=== PATIENT | male | born 1990 | race Caucasian/White ===

== ENCOUNTER 2016-09-07 00:41 | Emergency (ER) | payer OTHER ==
[~2016-09-07] VITALS: Ht 170.2 cm; Wt 55.5 kg
[~2016-09-07 00:41] MED LIST: DENIES
[2016-09-07 00:45] VITALS: Ht 170.2 cm; Wt 55.5 kg
[2016-09-07] MEDS ORDERED: IBUPROFEN 200 MG TAB PO ONE (01:00)
[2016-09-07] MEDS ORDERED: IBUP400T22 PO (01:04)
[2016-09-07] MEDS ORDERED: GUAI473L22 PO (01:04)
[2016-09-07] MEDS ORDERED: CETI10CA PO (01:04)
[2016-09-07] MEDS ORDERED: ALBU8.5H3 INH (01:04)
--- NOTE | 2016-09-07 01:08 | ERD ---
ER Documentation Chief Complaint Date/Time DATE: 09/07/16 TIME: 01:05 Chief Complaint cough x 3 days, sore throat HPI 26-year-old male presents to emergency department for complaints of cough for 3 days, runny nose nasal congestion sore throat and fever. Patient has an injury cough, does not cough up any phlegm or blood. Patient does not have any sick contacts. Patient took DayQuil home to help with symptoms with mild relief. ROS All systems reviewed and are negative except as per history of present illness. Medications Home Meds Active Scripts Albuterol Sulfate* (Proair HFA*) 8.5 Gm Hfa.aer.ad, 2 PUFF INH Q4H Y for WHEEZING AND SOB, #1 INHALER Prov:MARICRUZ GURROLA NP 09/07/16 Cetirizine Hcl* (Zyrtec*) 10 Mg Capsule, 10 MG PO DAILY, #30 TAB.CHEW Prov:MARICRUZ GURROLA NP 09/07/16 Ibuprofen* (Motrin*) 400 Mg Tab, 400 MG PO Q6H Y for PAIN AND OR ELEVATED TEMP, #30 TAB Prov:MARICRUZ GURROLA NP 09/07/16 Guaifenesin-Codeine Phosphate* (Guaifenesin* AC Cough Syrup) 473 Ml Liquid, 5 ML PO Q4H Y for COUGH, #120 ML Prov:MARICRUZ GURROLA NP 09/07/16 Reported Medications [Denies] No Conflict Check 04/03/11 Allergies Allergies: Coded Allergies: No Known Drug Allergies (Verified Allergy, Unknown, NONE, 10/31/13) PMhx/Soc Medical and Surgical Hx: pt denies Medical Hx History of Surgery: Yes (appendectomy) Anesthesia Reaction: No Hx Neurological Disorder: No Hx Respiratory Disorders: No Hx Cardiac Disorders: No Hx Psychiatric Problems: No Hx Miscellaneous Medical Probl: No Hx Alcohol Use: No Hx Substance Use: No Hx Tobacco Use: No FmHx Family History: No coronary disease, No diabetes, No other Physical Exam Vitals Vital Signs Date Time Temp Pulse Resp B/P Pulse Ox O2 Delivery O2 Flow Rate FiO2 09/07/16 00:45 100.1 87 20 124/69 98 Physical Exam GENERAL: The patient is well developed and appropriate for usual state of health, in no apparent distress. HEENT: Atraumatic. Ears: Normal tympanic membrane, no erythema or bulging. No ear canal swelling. No ear discharge. Nose: Erythematous nasal turbinates with clear nasal discharge. Throat: oropharynx erythematous with postnasal drainage. No tonsillar swelling or tonsillar exudates. No lymphadenopathy. CHEST: Clear to auscultation bilaterally. There are no rales, wheezes or rhonchi. HEART: Regular rate and rhythm. No murmurs, clicks, rubs or gallops. No S3 or S4. ABDOMEN: Soft, nontender and nondistended. Good bowel sounds. No rebound or guarding. No gross peritonitis. No gross organomegaly or masses. No Solorzano sign or McBurney point tenderness. BACK: No midline or flank tenderness. EXTREMITIES: Equal pulses bilaterally. There is no peripheral clubbing, cyanosis or edema. No focal swelling or erythema. Full range of motion. Grossly neurovascularly intact. NEURO: Alert and oriented. Cranial nerves 2-12 intact. Motor strength in all 4 extremities with 5/5 strength. Sensation grossly intact. Normal speech and gait. SKIN: There is no apparent rash or petechia. The skin is warm and dry. HEMATOLOGIC AND LYMPHATIC: There is no evidence of excessive bruising or lymphedema. No gross cervical, axillary, or inguinal lymphadenopathy. Results 24 hrs Current Medications Medications (Trade) Dose Ordered Sig/Lori Route PRN Reason Start Time Stop Time Status Last Admin Dose Admin Ibuprofen (Motrin) 400 mg ONCE ONCE PO 09/07/16 01:00 09/07/16 01:01 DC Patient was given medicines for fever control here in the emergency department. After treatment, patient temperature improved and lower. Patient appears well and is hemodynamically stable. Procedures/MDM Medical Decision Making: Patient symptoms are most likely consistent with upper respiratory tract infection, which viral in origin. There is low suspicion for Pneumonia at this time since patients lungs sounds are clear, patient O2 saturation is normal and patient doesnt show any respiratory distress. Radiology exam is not repeated at this. There is low suspicion for other cardiopulmonary emergencies at this time such as CHF, Pulmonary Embolism, Pneumothorax, or any other cardiopulmonary emergencies at this time. There is low suspicion for sepsis. Patient appears well and is hemodynamically stable. Fever is controlled with medicines. Disposition: Home. Condition: Stable Prescriptions: Guaifenesin with codeine ibuprofen Zyrtec albuterol. Instructions: Patient is advised to take medications as prescribed. Patient is advised to rest. Patient advised to increase fluid intake, do humidifier at home and if possible, do salt water gargles. Patient is advised that if symptoms are worse, shortness of breath, uncontrolled fever, stridor, vomiting, worst signs and symptoms to return to emergency department immediately. Otherwise, patient is advised to follow up with primary doctor in 5-7 days. Disclaimer: Inadvertent spelling and grammatical errors are likely due to EHR/ dictation software use and do not reflect on the overall quality of patient care. Also, please note that the electronic time recorded on this note does not necessarily reflect the actual time of the patient encounter. Departure Diagnosis: Primary Impression: URI (upper respiratory infection) URI type: unspecified viral URI Qualified Code: J06.9 - Viral upper respiratory tract infection Condition: Stable Patient Instructions: Uri, Viral, No Abx (Adult) MARICRUZ GURROLA NP Sep 07, 2016 01:07
== END 2016-09-07 01:26 | disposition home or self-care (01) ==
LOC: FTE 00:41
DX: J06.9 Acute upper respiratory infection, unspecified (principal)
CPT/HCPCS: Z7502; Z7610; 99283

== ENCOUNTER 2016-12-02 06:34 | Emergency (ER) | payer OTHER ==
[~2016-12-02] VITALS: Ht 170.2 cm; Wt 57.0 kg
[~2016-12-02 06:34] MED LIST changes: +ALBU8.5H3 INH; +CETI10CA PO; +GUAI473L22 PO; +IBUP400T22 PO
[2016-12-02 06:36] VITALS: Ht 170.2 cm; Wt 57.0 kg
[2016-12-02] MEDS ORDERED: MECLIZINE 12.5 MG TAB PO STA (06:48)
[2016-12-02] MEDS ORDERED: ONDANSETRON (ODT) 4 MG TAB ODT STA (06:48)
[2016-12-02] MEDS ORDERED: ACETAMINOPHEN 500 MG TAB PO STA (06:48)
[2016-12-02] MEDS ORDERED: MECL12.574 PO (06:50)
[2016-12-02] MEDS ORDERED: ONDA4TAB14 PO (06:50)
--- NOTE | 2016-12-02 07:22 | ERD ---
ER Documentation Chief Complaint Date/Time DATE: 12/02/16 TIME: 07:20 Chief Complaint Patient complains of headache and dizziness since this am HPI This is a 26-year-old male presenting to the emergency department complaining of headache, dizziness as if the room is spinning and nausea since this morning. Patient states that it started when he got up from bed and is exacerbated when he moves his head. Patient denies any vision changes, vomiting , lethargy. Patient states that he has not taken any medications for this. Denies any drug use or alcohol use ROS All systems reviewed and are negative except as per history of present illness. Medications Home Meds Active Scripts Ondansetron (Ondansetron Odt) 4 Mg Tab.rapdis, 4 MG PO Q6H Y for NAUSEA AND/OR VOMITING, #20 TAB Prov:MISSY REYES PA-C 12/02/16 Meclizine Hcl* (Antivert*) 12.5 Mg Tab, 25 MG PO Q6H Y for DIZZINESS, #20 TAB Prov:MISSY REYES PA-C 12/02/16 Albuterol Sulfate* (Proair HFA*) 8.5 Gm Hfa.aer.ad, 2 PUFF INH Q4H Y for WHEEZING AND SOB, #1 INHALER Prov:MARICRUZ GURROLA NP 09/07/16 Cetirizine Hcl* (Zyrtec*) 10 Mg Capsule, 10 MG PO DAILY, #30 TAB.CHEW Prov:MARICRUZ GURROLA NP 09/07/16 Ibuprofen* (Motrin*) 400 Mg Tab, 400 MG PO Q6H Y for PAIN AND OR ELEVATED TEMP, #30 TAB Prov:MARICRUZ GURROLA NP 09/07/16 Guaifenesin-Codeine Phosphate* (Guaifenesin* AC Cough Syrup) 473 Ml Liquid, 5 ML PO Q4H Y for COUGH, #120 ML Prov:MARICRUZ GURROLA NP 09/07/16 Reported Medications [Denies] No Conflict Check 04/03/11 Allergies Allergies: Coded Allergies: No Known Drug Allergies (Verified Allergy, Unknown, NONE, 10/31/13) PMhx/Soc Medical and Surgical Hx: pt denies Medical Hx History of Surgery: Yes (appendix) Anesthesia Reaction: No Hx Neurological Disorder: No Hx Respiratory Disorders: No Hx Cardiac Disorders: No Hx Psychiatric Problems: No Hx Miscellaneous Medical Probl: No Hx Alcohol Use: Yes (social) Hx Substance Use: Yes (marijuana) Hx Tobacco Use: No Smoking Status: Never smoker Physical Exam Vitals Vital Signs Date Time Temp Pulse Resp B/P Pulse Ox O2 Delivery O2 Flow Rate FiO2 12/02/16 06:36 97.1 52 20 130/89 99 Physical Exam GENERAL: well-developed/well-nourished, in no apparent distress, non-toxic appearing HENT: NC/AT, bilateral tympanic membrane is normal with good cone of light, nares patent, oropharynx clear without exudates EYES: Conjunctiva normal, PERRLA, EOMI, no nystagmus noted NECK: Supple, no lymphadenopathy PULM: CTA bilaterally, no rales, rhonchi, or wheezing heard CV: Normal S1S2, RRR, good capillary refill GI: Soft, non-distended, normal bowel sounds, non-tender BACK: No midline tenderness, no masses, No CVAT EXT: No clubbing, cyanosis, or edema NEURO: Alert and orientated to person, place, and time. CN II-IIX intact. Gait and coordination were normal. 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 SKIN: Intact, normal turgor PSYCH: Normal mood and mentation, patient denied SI Results 24 hrs Current Medications Medications (Trade) Dose Ordered Sig/Lori Route PRN Reason Start Time Stop Time Status Last Admin Dose Admin Acetaminophen (Tylenol Tab) 1,000 mg ONCE STAT PO 12/02/16 06:48 12/02/16 06:49 DC 12/02/16 06:54 Ondansetron HCl (Zofran Odt) 8 mg ONCE STAT ODT 12/02/16 06:48 12/02/16 06:49 DC 12/02/16 06:54 Meclizine HCl (Antivert) 25 mg ONCE STAT PO 12/02/16 06:48 12/02/16 06:49 DC 12/02/16 06:54 Procedures/MDM 26 year old male presents to the ER with vertigo, likely peripheral due to physical examination. Symptoms were reproduced with movement of head. My other differentials include but not limited to include labyrinthitis, vestibular neuritis, Mnire's disease, acoustic neuroma, otitis media and central causes such as vestibular migraine, brainstem ischemia, and multiple sclerosis. Patient did not have neurological symptoms tinnitus or hearing loss. I do not think a CT scan is necessary at this time, as I believe the risks outweigh the benefits since symptoms are most consistent with benign positional vertigo. However, I have given strict precautions to return to the ER if condition is not improving as expected or if condition worsens. In the ED, patient was given Tylenol 100mg, Antivert 25mg and Zofran 8mg ODT. hemodynamically stable. I have discussed the pathology of the condition. Prescriptions Antivert, Zofran have been given. I have discussed to see a primary care physician for follow-up examination and management. Discussed to return to the ER if condition worsens or not improves as expected. Patient expressed that they agreed and understood this plan. Departure Diagnosis: Primary Impression: Vertigo Additional Impression: Headache Condition: Stable Patient Instructions: Inner Ear Problems: Causes of Dizziness (Vertigo), Benign Positional Vertigo, Vertigo, Unspecified Referrals: [facility] YOU HAVE RECEIVED A MEDICAL SCREENING EXAM AND THE RESULTS INDICATE THAT YOU DO NOT HAVE A CONDITION THAT REQUIRES URGENT TREATMENT IN THE EMERGENCY DEPARTMENT. FURTHER EVALUATION AND TREATMENT OF YOUR CONDITION CAN WAIT UNTIL YOU ARE SEEN IN YOUR DOCTORS OFFICE WITHIN THE NEXT 1-2 DAYS. IT IS YOUR RESPONSIBILITY TO MAKE AN APPOINTMENT FOR FOLOW-UP CARE. IF YOU HAVE A PRIMARY DOCTOR --you should call your primary doctor and schedule an appointment IF YOU DO NOT HAVE A PRIMARY DOCTOR YOU CAN CALL OUR PHYSICIAN REFERRAL HOTLINE AT IF YOU CAN NOT AFFORD TO SEE A PHYSICIAN YOU CAN CHOSE FROM THE FOLLOWING [facility] [id number] [facility]. [facility] [address] [facility] [address] [facility] [facility] [address] [facility]. [facility] [place] [address] [facility]. [facility]. [address] Additional Instructions: FOLLOW UP WITH YOUR PRIMARY CARE PHYSICIAN TOMORROW.Return to this facility if you are not improving as expected. Take all medicines as directed. Return to this facility if you are not improving as expected. MISSY REYES PA-C Dec 02, 2016 07:22
== END 2016-12-02 08:21 | disposition home or self-care (01) ==
LOC: FTE 06:34
DX: R42 Dizziness and giddiness (principal)
CPT/HCPCS: Z7502; Z7610; 99283

== ENCOUNTER 2017-02-18 17:14 | Emergency (ER) | END 2017-02-18 20:45 | disposition home or self-care (01) ==

== ENCOUNTER 2017-07-20 17:23 | Emergency (ER) | END 2017-07-20 21:37 | disposition home or self-care (01) ==